=== PATIENT | male | born 1965 | race Caucasian/White ===

== ENCOUNTER 2019-04-16 13:04 | Emergency (ER) | payer OTHER, BC ==
--- NOTE | 2019-04-16 13:24 | EDM.PDOC ---
ED HPI GENERAL MEDICAL PROBLEM - General Chief Complaint: Upper Extremity Injury/Pain Stated Complaint: LT ARM INJURY Time Seen by Provider: 04/16/19 13:12 Source of Information: Reports: Patient, RN Notes Reviewed History Limitations: Reports: No Limitations - History of Present Illness INITIAL COMMENTS - FREE TEXT/NARRATIVE: Patient is a 53-year-old male who presents to the ED for the evaluation of the left forearm injury. The patient states that he works for [employer] and was pulling a wheeled cart full of heavy dishes. This cart became entrapped on a rug and started to tip over he went to try to prevent the cart from tripping over and ended up hitting his left upper forearm with the cart. The patient states since this injury he has not been able to do much for lifting even light objects such as a cell phone, without much pain the patient did ice the area for around 30 minutes, and did take 600 mg ibuprofen at noon with a little relief from his pain. There is no obvious bruising, swelling, or deformity. He denies any numbness or tingling into his left hand, or pain into his elbow or shoulder. The patient notes he is right-hand dominant. He would rate his pain at a 2/10 today, and is worried more about not being able to lift much, he states there is not much pain associated at all. - Related Data Allergies Allergy/AdvReac Type Severity Reaction Status Date / Time No Known Allergies Allergy Verified 04/16/19 13:14 Home Meds: Home Meds Finasteride 1 mg PO DAILY 04/16/19 [History] Losartan [Cozaar] 25 mg PO DAILY 04/16/19 [History] atorvaSTATin [Lipitor] 0 mg PO DAILY 04/16/19 [History] Past Medical History HEENT History: Reports: None Cardiovascular History: Reports: High Cholesterol, Hypertension Respiratory History: Reports: None Gastrointestinal History: Reports: None Genitourinary History: Reports: BPH Musculoskeletal History: Reports: None Neurological History: Reports: None Psychiatric History: Reports: None Endocrine/Metabolic History: Reports: None Hematologic History: Reports: None Immunologic History: Reports: None Oncologic (Cancer) History: Reports: None Dermatologic History: Reports: None - Infectious Disease History Infectious Disease History: Reports: None - Past Surgical History Head Surgeries/Procedures: Reports: None Social & Family History - Tobacco Use Smoking Status *Q: Never Smoker - Caffeine Use Caffeine Use: Reports: Coffee - Recreational Drug Use Recreational Drug Use: No Review of Systems - Review of Systems Review Of Systems: See Below Constitutional: Reports: No Symptoms Eyes: Reports: No Symptoms Ears: Reports: No Symptoms Nose: Reports: No Symptoms Mouth/Throat: Reports: No Symptoms Respiratory: Reports: No Symptoms Cardiovascular: Reports: No Symptoms GI/Abdominal: Reports: No Symptoms Genitourinary: Reports: No Symptoms Musculoskeletal: Reports: Arm Pain (Left upper forearm) Skin: Reports: No Symptoms Neurological: Reports: Weakness (of left forearm, he states that it is hard to lift/grasp objects.). Denies: Numbness, Tingling Psychiatric: Reports: No Symptoms ED EXAM, GENERAL - Physical Exam Exam: See Below Exam Limited By: No Limitations General Appearance: Alert, WD/WN, No Apparent Distress Eye Exam: Bilateral Eye: Normal Inspection Ears: Normal External Exam Nose: Normal Inspection Throat/Mouth: Normal Inspection Head: Atraumatic, Normocephalic Neck: Normal Inspection Respiratory/Chest: No Respiratory Distress, Lungs Clear, Normal Breath Sounds, No Accessory Muscle Use, Chest Non-Tender Cardiovascular: Normal Peripheral Pulses, Regular Rate, Rhythm, No Murmur Peripheral Pulses: 3+: Radial (L), Radial (R) Extremities: Normal Inspection, Normal Range of Motion, Normal Capillary Refill , Other (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 Small calcification off anterior elbow most likely representing old injury. 2. Possible small avulsion fracture on the lateral view of the distal carpal bones posteriorly which is seen on the lateral view. Uncertain as to which bolus is. 3. No other acute abnormalities. Dr. Dozier and I did relook at the films, and cannot appreciate any avulsion fracture seen, also the patient is complaining of any sort of hand or wrist pain at this time. Patient was advised that if his pain is not much better in a week's time that he should seek re-evaluation. He was understanding of this. - Re-Assessments/Exams Free Text/Narrative Re-Assessment/Exam: 04/16/19 13:37 Patient presents to the ED for evaluation of a left forearm injury. I did order forearm x-rays to be obtained to evaluate for any bony abnormalities at this time. 04/16/19 13:52 Forearm x-rays are done and reviewed by myself and Dr. Dozier, there are no bony abnormalities or fractures noted. No fat pad/sail signs. It is likely this is a deep contusion of his forearm muscles. Will give general recommendations and discharge home. Departure - Departure Time of Disposition: 13:54 Disposition: Home, Self-Care 01 Condition: Fair Clinical Impression: Contusion of left forearm, initial encounter - Discharge Information *PRESCRIPTION DRUG MONITORING PROGRAM REVIEWED*: No *COPY OF PRESCRIPTION DRUG MONITORING REPORT IN PATIENT GENET: No Instructions: Musculoskeletal Pain Referrals: Joaquin Gomez MD [Primary Care Provider] - Forms: ED Department Discharge, ED Return to Work/School Form Additional Instructions: You have been evaluated in the ED for your left forearm pain. Your x-ray demonstrated no acute bony fracture or abnormality appreciated. The area may be JOSEFINA wrapped as tolerated. Please use ice/heat as tolerated to the affected area. You may take tylenol 500 mg or ibuprofen 600mg q6 hrs for pain relief. Please do so until you have a tolerable level of pain with activity. Do not exceed 4000mg tylenol, Do not exceed 3200mg ibuprofen in a 24 hour time period. Please return to ED if your symptoms should change or worsen.
--- NOTE | 2019-04-16 14:11 | CR ---
Left forearm: Two views of the left forearm were obtained. Comparison: No prior forearm study. Small calcification is noted off the anterior elbow most likely due to old injury. Possible small avulsion fracture is noted on the lateral view which involves the distal carpal bone posteriorly and is not seen on other views. No acute fracture or other abnormality is appreciated. Impression: 1. Small calcification off the anterior elbow most likely representing old injury. 2. Possible small avulsion fracture on the lateral view off the distal carpal bone posteriorly which is seen on the lateral view. Uncertain as to which bone this is. 3. No other acute abnormality is seen. Diagnostic code #3
== END 2019-04-16 14:15 | disposition home or self-care (01) ==
LOC: JD.ED 13:04
DX: S50.12XA Contusion of left forearm, initial encounter (principal); E78.00 Pure hypercholesterolemia, unspecified; I10 Essential (primary) hypertension; X50.9XXA Other and unspecified overexertion or strenuous movements or postures, initial encounter; Z79.899 Other long term (current) drug therapy
CPT/HCPCS: 73090-26-LT; 73090-LT; 99282; 99283-25

== ENCOUNTER 2020-04-18 10:06 | Emergency (ER) | payer BC, OTHER ==
--- NOTE | 2020-04-18 11:55 | US ---
Left lower extremity deep venous ultrasound: Duplex and color Doppler evaluation was obtained of the left common femoral, proximal greater saphenous, superficial femoral, popliteal, posterior tibial and peroneal veins. Right common femoral vein was also evaluated. Comparison: No prior venous studies available. Findings: Phasic flow not well seen within the popliteal vein, posterior tibial and peroneal veins. These veins show normal compression and augmentation. Other veins show normal compression, phasic flow and augmentation. Impression: 1. Nothing is seen to indicate deep venous thrombosis within the left lower extremity or within the right common femoral vein. Diagnostic code #1 Study was dictated in MDT
--- NOTE | 2020-04-18 12:23 | CT ---
Head CT Technique: Multiple axial sections through the brain were obtained. Intravenous contrast was not utilized. Comparison: No prior intracranial imaging is available. Findings: Ventricles along with basal cisterns and sulci over the convexities appear within normal limits for the patient's age. No abnormal parenchymal densities are appreciated. No evidence of intracranial hemorrhage. No midline shift or mass effect is seen. Bone window settings were reviewed which showed no acute osseous finding. Visualized mastoid sinuses and visualized paranasal sinuses show nothing acute. Impression: 1. Nothing acute is appreciated on noncontrast head CT exam. Diagnostic code #1 Study was dictated in MDT
--- NOTE | 2020-04-18 12:51 | EDM.PDOC ---
ED HPI GENERAL MEDICAL PROBLEM - General Chief Complaint: Lower Extremity Injury/Pain Stated Complaint: L LEG PAIN Time Seen by Provider: 04/18/20 10:17 Source of Information: Reports: Patient History Limitations: Reports: No Limitations - History of Present Illness INITIAL COMMENTS - FREE TEXT/NARRATIVE: The patient presents with left leg pain and numbness. This has been going on for a few days. He first noticed it one night getting off of a bar stool. The next morning he had some swelling and numbness in the leg. He has no weakness in the leg. He has a history of sciatica before. He says for the past few days he had some dizziness. When he changes positions he will have the room spinning. He has no headache, fever, chills, cough, chest pain, shortness of breath, abdominal pain, nausea and vomiting. He was just taken off of his atorvastatin because his liver enzymes were going up. Onset: Gradual Duration: Day(s): Location: Reports: Lower Extremity, Left Quality: Reports: Ache Severity: Mild Improves with: Reports: None Worsens with: Reports: None Associated Symptoms: Reports: No Other Symptoms Treatments EQUINE VET: Reports: NSAIDS Left Leg Pain Score (Numeric/FACES): 5 - Related Data Allergies Allergy/AdvReac Type Severity Reaction Status Date / Time No Known Allergies Allergy Verified 04/16/19 13:14 Home Meds: Home Meds Finasteride 1 mg PO DAILY 04/16/19 [History] Losartan [Cozaar] 25 mg PO DAILY 04/16/19 [History] Cyclobenzaprine [Flexeril] 10 mg PO TID PRN #30 tab 04/18/20 [Rx] Meclizine [Antivert] 25 mg PO Q6H PRN #30 tab 04/18/20 [Rx] Past Medical History HEENT History: Reports: None Cardiovascular History: Reports: High Cholesterol, Hypertension Respiratory History: Reports: None Gastrointestinal History: Reports: None Genitourinary History: Reports: BPH Musculoskeletal History: Reports: None Neurological History: Reports: None Psychiatric History: Reports: None Endocrine/Metabolic History: Reports: None Hematologic History: Reports: None Immunologic History: Reports: None Oncologic (Cancer) History: Reports: None Dermatologic History: Reports: None - Infectious Disease History Infectious Disease History: Reports: None - Past Surgical History Head Surgeries/Procedures: Reports: None Social & Family History - Family History Family Medical History: Noncontributory - Tobacco Use Years of Tobacco use: 30 Packs/Tins Daily: 0.5 - Caffeine Use Caffeine Use: Reports: Coffee Review of Systems - Review of Systems Review Of Systems: See Below Constitutional: Reports: No Symptoms Eyes: Reports: No Symptoms Ears: Reports: Dizziness Nose: Reports: No Symptoms Mouth/Throat: Reports: No Symptoms Respiratory: Reports: No Symptoms Cardiovascular: Reports: No Symptoms GI/Abdominal: Reports: No Symptoms Genitourinary: Reports: No Symptoms Musculoskeletal: Reports: Other (Left leg pain and numbness) ED EXAM, GENERAL - Physical Exam Exam: See Below Exam Limited By: No Limitations General Appearance: Alert, No Apparent Distress Ears: Normal External Exam Nose: Normal Inspection Head: Atraumatic, Normocephalic Neck: Normal Inspection Respiratory/Chest: No Respiratory Distress, Lungs Clear, Normal Breath Sounds Cardiovascular: Regular Rate, Rhythm, No Edema, No Murmur GI/Abdominal: Soft, Non-Tender, No Organomegaly, No Mass Back Exam: Normal Inspection Extremities: Normal Inspection EKG INTERPRETATION EKG Date: 04/18/20 Time: 10:42 Rhythm: NSR Rate (Beats/Min): 86 Liberal: LAD-Left Liberal Deviation P-Wave: Present QRS: Normal ST-T: Normal QT: Normal Course - Vital Signs Last Recorded V/S: Last Vital Signs Temp 97.3 F 04/18/20 10:16 Pulse 96 04/18/20 10:16 Resp 16 04/18/20 10:16 BP 151/107 H 04/18/20 10:16 Pulse Ox 95 04/18/20 10:16 - Orders/Labs/Meds Orders: Active Orders 24 hr Category Date Time Status Cardiac Monitoring [RC] . DIRECTED Care 04/18/20 10:36 Active EKG Documentation Completion [RC] STAT Care 04/18/20 10:36 Active Labs: Laboratory Tests 04/18/20 04/18/20 Range/Units 11:30 11:30 WBC 4.42 (4.23-9.07) K/mm3 RBC 4.69 (4.63-6.08) M/mm3 Hgb 14.4 (13.7-17.5) gm/dl Hct 42.2 (40.1-51.0) % MCV 90.0 (79.0-92.2) fl MCH 30.7 (25.7-32.2) pg MCHC 34.1 (32.2-35.5) g/dl RDW Std Deviation 40.0 (35.1-43.9) fL Plt Count 198 (163-337) K/mm3 MPV 10.0 (9.4-12.3) fl Neut % (Auto) 58.6 (34.0-67.9) % Lymph % (Auto) 25.6 (21.8-53.1) % [place] % (Auto) 11.5 (5.3-12.2) % Eos % (Auto) 3.2 (0.8-7.0) Baso % (Auto) 0.9 (0.1-1.2) % Neut # (Auto) 2.59 (1.78-5.38) K/mm3 Lymph # (Auto) 1.13 L (1.32-3.57) K/mm3 [place] # (Auto) 0.51 (0.30-0.82) K/mm3 Eos # (Auto) 0.14 (0.04-0.54) K/mm3 Baso # (Auto) 0.04 (0.01-0.08) K/mm3 Sodium 141 (136-145) mEq/L Potassium 4.4 (3.5-5.1) mEq/L Chloride 105 (98-107) mEq/L Carbon Dioxide 25 (21-32) mEq/L Anion Gap 15.4 H (5-15) BUN 21 H (7-18) mg/dL Creatinine 1.1 (0.7-1.3) mg/dL Est Cr Clr Drug Dosing 81.11 mL/min Estimated GFR (MDRD) > 60 (>60) mL/min BUN/Creatinine Ratio 19.1 H (14-18) Glucose 99 (74-106) mg/dL Calcium 8.7 (8.5-10.1) mg/dL Total Bilirubin 0.7 (0.2-1.0) mg/dL AST 80 H (15-37) U/L ALT 189 H (16-63) U/L Alkaline Phosphatase 70 (46-116) U/L Troponin I < 0.017 (0.00-0.056) ng/mL Total Protein 7.8 (6.4-8.2) g/dl Albumin 3.9 (3.4-5.0) g/dl Globulin 3.9 gm/dL Albumin/Globulin Ratio 1.0 (1-2) - Re-Assessments/Exams Free Text/Narrative Re-Assessment/Exam: 04/18/20 12:49 I ordered an EKG, CT of his head, labs and an US of his leg. His EKG shows a NSR with no acute changes. The US of his leg looks good. The CT of his head shows nothing acute. His labs look good except the AST and ALT are slightly elevated. I will discharge him home with a muscle relaxer and some antivert for the dizziness. Departure - Departure Time of Disposition: 12:55 Disposition: Home, Self-Care 01 Condition: Good Clinical Impression: Vertigo Sciatica Qualifiers: Laterality: left Qualified Code(s): M54.32 - Sciatica, left side - Discharge Information *PRESCRIPTION DRUG MONITORING PROGRAM REVIEWED*: Not Applicable *COPY OF PRESCRIPTION DRUG MONITORING REPORT IN PATIENT GENET: Not Applicable Prescriptions: Meclizine [Antivert] 25 mg PO Q6H PRN #30 tab PRN Reason: Dizziness Cyclobenzaprine [Flexeril] 10 mg PO TID PRN #30 tab PRN Reason: Pain Referrals: Joaquin Gomez MD [Primary Care Provider] - 2 Weeks Additional Instructions: Take motrin or aleve for pain. If that does not help, try the flexeril. Drink plenty of water. Take the antivert as needed for dizziness. Please return if you are worse. Sepsis Event Note (ED) - Evaluation Sepsis Screening Result: No Definite Risk - Focused Exam Vital Signs: Vital Signs Temp Pulse Resp BP Pulse Ox 04/18/20 10:16 97.3 F 96 16 151/107 H 95 - My Orders Last 24 Hours: My Active Orders 04/18/20 10:36 Cardiac Monitoring [RC] . DIRECTED EKG Documentation Completion [RC] STAT - Assessment/Plan Last 24 Hours: My Active Orders 04/18/20 10:36 Cardiac Monitoring [RC] . DIRECTED EKG Documentation Completion [RC] STAT
== END 2020-04-18 13:10 | disposition home or self-care (01) ==
LOC: JD.ED 10:06
DX: M54.32 Sciatica, left side (principal); R42 Dizziness and giddiness; I10 Essential (primary) hypertension; F17.210 Nicotine dependence, cigarettes, uncomplicated; Z79.899 Other long term (current) drug therapy
CPT/HCPCS: 36415; 70450; 70450-26; 80053; 84484; 85025; 93005; 93010; 93971-26-LT; 93971-LT; 99284; 99284-25